=== PATIENT | female | born 1970 | race Caucasian/White ===

== ENCOUNTER 2017-03-17 11:08 | Outpatient (CLI) | payer OTHER ==
--- NOTE | 2017-03-17 13:53 | Mammography Report ---
DIGITAL DIAGNOSTIC BILATERAL MAMMOGRAM: 03/17/2017 CLINICAL INDICATION: Recent trauma with tender palpable abnormality adjacent to the right nipple. COMPARISON: 05/08/2012. TECHNIQUE: Bilateral CC, MLO, right true lateral views. A marker was placed at the site of palpable a bnormality identified by the patient. FINDINGS: The breasts demonstrate scattered fibroglandular densities bilaterally. No suspicious mass es, clustered microcalcifications, or regions of architectural distortion are identified. No mammogra phic abnormality is appreciated in the right periareolar breast, at the site indicated by the marker. Please also refer to right breast ultrasound of the same day. IMPRESSION: PROBABLE BENIGN FINDINGS, WITH A LIKELY HEMATOMA ON ULTRASOUND. RECOMMENDATION: RIGHT BREAST ULTRASOUND IN SIX MONTHS. BIRADS CATEGORY 3-PROBABLE BENIGN FINDINGS. STANDARD QUALIFYING STATEMENTS 1. This examination was reviewed with the aid of Computer-Aided Detection (CAD). 2. A negative or benign imaging report should not delay biopsy if clinically suspicious findings are present. Consider surgical consultation if warranted. More than 5% of cancers are not identified by i maging. 3. Dense breasts may obscure an underlying neoplasm. JOB #: [id number] EXT JOB #:[id number]
--- NOTE | 2017-03-18 07:02 | Ultrasound Report ---
ULTRASOUND RIGHT BREAST: 03/17/2017 CLINICAL INDICATION: Palpable periareolar lesion, recent trauma. 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 FINDINGS: Ultrasound of the periareolar right breast was performed. At the 9 o'clock position, there is a 0.8 x 0.8 x 0.6 cm hypoechoic nodule, compatible with a small h ematoma. No sonographically suspicious findings are seen. IMPRESSION: LIKELY SMALL HEMATOMA CORRELATING WITH THE PALPABLE ABNORMALITY. RECOMMENDATION: RIGHT BREAST ULTRASOUND IN SIX MONTHS. BIRADS CATEGORY 3-PROBABLE BENIGN FINDINGS. JOB #: [id number] EXT JOB #:[id number]
== END 2017-03-17 11:09 | disposition home or self-care (01) ==
LOC: DI 11:08
PROVIDERS: ATTEND Physician Assistant Medical
DX: N63 Unspecified lump in breast (principal)
CPT/HCPCS: 76642; 77066

== ENCOUNTER 2018-02-24 16:40 | Outpatient (CLI) | payer OTHER ==
--- NOTE | 2018-02-24 23:04 | XRAY Report ---
Procedure Date: 02/24/2018 Accession Number: [id number] / [id number] Procedure: XR - Tib/Fib LT CPT Code: FULL RESULT: EXAM: LEFT TIBIA/FIBULA RADIOGRAPHY EXAM DATE: 02/24/2018 05:08 PM. CLINICAL HISTORY: NEOPLASM OF LEG. Additional history: Swelling to anterior surface of left mid leg of unknown origin. Patient states no recent trauma to leg. COMPARISON: None. TECHNIQUE: 2 views. FINDINGS: Bones: No displaced fracture. Along the anterior margin of the distal third of the tibial diaphysis involving the cortex there is minimal subcortical sclerosis and mild anterior projection of the cortex. No cortical thinning/erosion. No periosteal reaction. No central nidus. Location is atypical for stress reaction/fracture. Joints: Knee and ankle joints are normally aligned. Soft Tissues: No focal soft tissue swelling, particularly no soft tissue swelling demonstrated over the abnormality of the distal anterior tibia. IMPRESSION: Abnormality of the anterior cortex of the distal third of the tibial diaphysis with nonaggressive features, though of uncertain etiology. Consider nuclear medicine bone scan versus MRI of the lower extremity without and with contrast for further evaluation. RADIA
== END 2018-02-24 16:41 | disposition home or self-care (01) ==
LOC: DI 16:40
PROVIDERS: ATTEND Internal Medicine
DX: M89.8X6 Other specified disorders of bone, lower leg (principal); D49.89 Neoplasm of unspecified behavior of other specified sites

== ENCOUNTER 2021-02-07 10:55 | Emergency (ER) | payer OTHER ==
--- NOTE | 2021-02-07 11:22 | ED Physician Documentation ---
PD HPI UPPER EXT INJURY - Stated complaint Stated Complaint: L HAND LAC - Chief complaint Chief Complaint: Laceration - History obtained from History obtained from: Patient - History of Present Illness Location: Left, Finger (dorsl ring and little) Type of injury: Laceration (cut with edge of glass, dorsal fingers DIPs, with some bleeding. 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 - Present Medications Home Medications: Ambulatory Orders Medication Instructions Recorded Confirmed Lisinopril [Zestril] 2.5 mg PO DAILY 02/07/21 02/07/21 - Allergies Allergies/Adverse Reactions: Allergies Allergy/AdvReac Type Severity Reaction Status Date / Time Sulfa (Sulfonamide Allergy Unknown Verified 02/07/21 11:14 Antibiotics) - Social History Does the pt smoke?: Yes Smoking Status: Current every day smoker Does the pt drink ETOH?: Yes Does the pt have substance abuse?: No - Immunizations Immunizations are current?: Yes PD ED PE NORMAL - Vitals Vital signs reviewed: Yes - General General: Alert and oriented X 3, Well developed/nourished - Derm Derm: Normal color, Warm and dry - Extremities Extremities: Other (left ring and little fingers with well demarcated lacs dorsal DIP joints without weakness nor numbness distally. Lacs to fatty layer; no deep structures nor FBs. ) - Neuro Neuro: No motor deficit, No sensory deficit Results - Vitals Vitals: Vital Signs - 24 hr 02/07/21 02/07/21 11:11 12:21 Temperature 37.1 C 36.7 C Heart Rate 96 85 Respiratory 18 20 Rate Blood Pressure 194/105 H 156/95 H O2 Saturation 99 99 Oxygen O2 Source Room air Procedures - Laceration (location) ring and little fingers Length in cm: 2 Wound type: Linear, Into subcut fat Neurovascular status: Sensory intact, Motor intact, Vascular intact Tendon involvement: Tendon intact Skin layer closure: Dermabond, Steri strips PD MEDICAL DECISION MAKING - ED course Complexity details: considered differential, d/w patient Departure - Departure Disposition: 01 Home, Self Care Clinical Impression: Finger laceration Qualifiers: Encounter type: initial encounter Finger: ring finger Damage to nail status: without damage Foreign body presence: without foreign body Laterality: left Qualified Code(s): S61.215A - Laceration without foreign body of left ring finger without damage to nail, initial encounter Condition: Stable Record reviewed to determine appropriate education?: Yes Instructions: ED Laceration Hand Comments: Keep the area clean and dry. Allow the glue and tapes to fall off on their own after several days or more. That should then be sealed enough to allow just regular wound care with Band-Aids. Discharge Date/Time: 02/07/21 12:29
[2021-02-07 12:22] VITALS: BP 156/95
== END 2021-02-07 12:29 | disposition home or self-care (01) ==
LOC: ED 10:55
DX: S61.215A Laceration without foreign body of left ring finger without damage to nail, initial encounter (principal); S61.217A Laceration without foreign body of left little finger without damage to nail, initial encounter; W25.XXXA Contact with sharp glass, initial encounter; Y92.009 Unspecified place in unspecified non-institutional (private) residence as the place of occurrence of the external cause; I10 Essential (primary) hypertension; F17.200 Nicotine dependence, unspecified, uncomplicated
CPT/HCPCS: 12001; 99282

== ENCOUNTER 2021-12-19 10:36 | Emergency (ER) | payer OTHER ==
[2021-12-19 10:53] VITALS: BP 178/97
--- NOTE | 2021-12-19 12:47 | ED Physician Documentation ---
History of Present Illness - Stated complaint Stated Complaint: LUMP ON R BREAST - Chief complaint Chief Complaint: General - History obtained from History obtained from: Patient - History of Present Illness Pain level max: 3 Pain level now: 2 - Additonal information Additional information: Patient is a 51-year-old female who presents to the emergency department with right breast swelling and tenderness. She stated is to the right side of the nipple. She states she has noticed a lump for about the past month, but became red and tender about 4-5 days ago. No fevers. No chills. Nothing makes it better or worse. Her last mammogram was about 6 years ago. No drainage from the nipple. No breast-feeding. 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 - Present Medications Home Medications: Ambulatory Orders Medication Instructions Recorded Confirmed Losartan Potassium [Cozaar] 100 mg PO DAILY 12/19/21 12/19/21 Metoprolol Succinate [Toprol Xl] 50 mg PO DAILY 12/19/21 12/19/21 clindamycin HCL [Cleocin HCl] 300 mg PO Q6H #40 cap 12/19/21 - Allergies Allergies/Adverse Reactions: Allergies Allergy/AdvReac Type Severity Reaction Status Date / Time shellfish derived Allergy Nausea Verified 12/19/21 10:48 Sulfa (Sulfonamide Allergy Unknown Verified 12/19/21 10:48 Antibiotics) - Social History Does the pt smoke?: Yes Smoking Status: Current every day smoker Does the pt drink ETOH?: Yes Does the pt have substance abuse?: No - Immunizations Immunizations are current?: Yes PD ED PE NORMAL - Vitals Vital signs reviewed: Yes - General General: Alert and oriented X 3, No acute distress - HEENT HEENT: Moist mucous membranes - Neck Neck: Supple, no meningeal sign - Cardiac Cardiac: RRR - Respiratory Respiratory: No respiratory distress, Clear bilaterally - Derm Derm: Warm and dry - Neuro Neuro: Alert and oriented X 3 - Psych Psych: Normal mood, Normal affect - Free text exam Free text exam: Tender to palpation over the right breast, there is about a 3 cm indurated erythematous area to the lateral aspect of the breast, adjacent to the areola. No lymphadenopathy Results - Vitals Vitals: Vital Signs - 24 hr 12/19/21 10:50 Temperature 36.7 C Heart Rate 93 Respiratory 16 Rate Blood Pressure 178/97 H O2 Saturation 99 Oxygen O2 Source Room air - Rads (name of study) Breast ultrasound Radiology: Final report received, EMP read contemporaneously, See rad report PD MEDICAL DECISION MAKING - ED course Complexity details: reviewed results, re-evaluated patient, considered differential, d/w patient, d/w family, d/w clinical sales consultant (Dr. Jiménez) ED course: 51-year-old female presents to the emergency department with swelling and redness to the right breast. Ultrasound appears consistent with an abscess as does her clinical exam. General surgery was consulted and came to perform an incision and drainage, patient refuses incision and drainage. As she refuses this, we will trial first on oral antibiotics. Patient was counseled several times that this may not cure her abscess and that her abscess could become worse, necessitating a larger procedure or resulting in sepsis. Patient was also counseled that she needs a follow-up ultrasound in 1 month as directed by radiology. Patient counseled regarding signs and symptoms for which I believe and urgent re-evaluation would be necessary. Patient with good understanding of and agreement to plan and is comfortable going home at this time This document was made in part using voice recognition software. While efforts are made to proofread this document, sound alike and grammatical errors may occur. Findings consistent with abscess. Departure - Departure Disposition: 01 Home, Self Care Clinical Impression: Breast abscess Condition: Good Instructions: ED Staph Infec Abx Tx Only Follow-Up: Mika Jiménez MD [Provider Admit Priv/Credential] - Within 1 week Elisa Hinojosa ARNP [Primary Care Provider] - Within 1 week Prescriptions: clindamycin HCL [Cleocin HCl] 300 mg PO Q6H #40 cap Comments: Take all antibiotics until gone. Return if you worsen. You have elected not to have the abscess incised and drained today. This may result in the abscess worsening and the infection could spread. Please return if you have increased pain, fever or worsening symptoms. Please follow-up with Dr. Jiménez as discussed today. Your prescriptions were sent to [facility] in [place]. You will need a repeat ultrasound in 1 month. Discharge Date/Time: 12/19/21 16:28
[2021-12-19] MEDS ORDERED: LIDOCAINE 2%-EPI 1:100000 20 ML MDV SUBQ STA (13:33)
[2021-12-19] MEDS ORDERED: CLINDAMYCIN 150 MG CAPSULE PO STA (13:45)
--- NOTE | 2021-12-19 13:45 | Ultrasound Report ---
No prior exams were available for comparison. Findings: Color flow and real-time ultrasound of the right breast 9-10 o'clock, and axilla regions w ere performed. Rivas scale images of the real-time examination were reviewed. In the right breast 9 o'clock to 10 o'clock position at the edge of the areola there is a 2.5 x 1.9 x 2.5 cm hypoechoic/anechoic area likely an abscess with associated phlegmon. Some areas have a solid appearance. A prior ultrasound in 2017 demonstrated a mass in the same location measuring 8 x 8 x 6 mm. Impression: Findings are most consistent with an abscess. Findings were discussed with . Marck montero is caring for the patient in the emergency department, and clinically the patient has findings mos t consistent with an abscess. Therefore after drainage and antibiotics, a 1 month ultrasound is amish mmended to ensure resolution. Reviewed by: Blue Akers on 12/19/2021 1:43 PM PDT Approved by: Blue Akers on 12/19/2021 1:43 PM PDT Station ID: [id number]
--- NOTE | 2021-12-19 16:18 | CONSULTATION NOTE ---
Referring Provider Consult Date: 12/19/21 History of Present Illness - History Obtained From Records Reviewed: yes History obtained from: pt Exam Limitations: none - History of Present Illness HPI Comment/Other: mild right breast inflammation for a few weeks. progressed to redness last couple days. minimal pain. 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 Meds/Allgy - Home Medications Home Medications: Ambulatory Orders Medication Instructions Recorded Confirmed Losartan Potassium [Cozaar] 100 mg PO DAILY 12/19/21 12/19/21 Metoprolol Succinate [Toprol Xl] 50 mg PO DAILY 12/19/21 12/19/21 - Allergies Allergies/Adverse Reactions: Allergies Allergy/AdvReac Type Severity Reaction Status Date / Time shellfish derived Allergy Nausea Verified 12/19/21 10:48 Sulfa (Sulfonamide Allergy Unknown Verified 12/19/21 10:48 Antibiotics) Exam - Vital Signs Vital Signs: Vital Signs x48h Temp Pulse Resp BP Pulse Ox 12/19/21 10:50 36.7 C 93 16 178/97 H 99 - Physical Exam General Appearance: positive: No acute distress, Alert Eyes Bilateral: positive: PERRL, EOMI, No scleral icterus ENT: positive: No signs of dehydration Neck: positive: No JVD, Trachea midline Respiratory: positive: No respiratory distress Abdomen: positive: No distention Skin: positive: Other (right breast just under the areola edge 10:00 small abscess with mild overlying cellulitis) Neurologic/Psychiatric: positive: Oriented x3 Conclusion/Plan - Problem List (1) Breast abscess Conclusion/Plan: I and D offered. She has minimal pain and has not been on antibiotics. plan home on oral antibiotics. follow up surgery office is recommended. she is asked to get a referral from her pmd. we discussed if it gets worse over the weekend she should come to the ED for incision and drainage.
== END 2021-12-19 16:28 | disposition home or self-care (01) ==
LOC: ED 10:36
DX: N61.1 Abscess of the breast and nipple (principal); I10 Essential (primary) hypertension; F17.200 Nicotine dependence, unspecified, uncomplicated
CPT/HCPCS: 76642; 99284; A9270

== ENCOUNTER 2022-02-12 10:29 | Outpatient (CLI) | payer OTHER ==
--- NOTE | 2022-02-13 16:14 | Ultrasound Report ---
LIMITED ULTRASOUND OF RIGHT BREAST: 02/12/2022 CLINICAL: Patient returns for short term follow-up of a probably benign mass in the right breast. Comparison is made to exam dated: 12/19/2021 ultrasound - [facility]. Color flow and real-time ultrasound of the right breast 9-10 o'clock, and retroareolar regions were p erformed. Rivas scale images of the real-time examination were reviewed. There is a 0.7 cm x 0.6 cm x 0.5 cm oval fluid collection in the right breast at 9 o'clock anterior d epth. This oval fluid collection is hypoechoic with posterior acoustic enhancement. This abnormalit y is decreased in size. (Previously 2.5 cm x 2.5 cm x 1.9 cm on 12/19/2021). Color flow imaging demons trates that there is an adjacent vascularity. IMPRESSION: PROBABLY BENIGN The 0.7 cm fluid collection in the right breast is decreased in size and most likely is an abscess an d is probably benign. A follow-up ultrasound in 6 months is recommended to demonstrate resolution. Patient is also due for mammogram. Exam findings were conveyed to the patient. This exam was interpreted at Station ID: [id number]. Electronically Signed By: Dany Molina M.D. slc/:02/12/2022 11:10:10 Ultrasound BI-RADS: 3 Probably benign BI-RADS CATEGORY: (3) - 3 Mammo and [place] [id number] 6 month follow-up LATERALITY: (B)
== END 2022-02-12 10:30 | disposition home or self-care (01) ==
LOC: DI 10:29
PROVIDERS: ATTEND Registered Nurse
DX: R92.8 Other abnormal and inconclusive findings on diagnostic imaging of breast (principal)

== ENCOUNTER 2022-10-04 07:02 | Outpatient (CLI) | payer OTHER ==
[2022-10-04 14:39] LABS: BASOPHILS % (AUTO) 0.4 %; EOSINOPHILS # (AUTO) 0.3 10^3/uL (0.0-0.7); EOSINOPHILS % (AUTO) 4.5 %; HCT - HEMATOCRIT 41.8 % (37.0-47.0); HGB - HEMOGLOBIN 13.4 g/dL (12.0-16.0); LYMPHOCYTES # (AUTO) 2.1 10^3/uL (1.5-3.5); LYMPHOCYTES % (AUTO) 31.1 %; MEAN CORPUSCULAR HEMOGLOBIN 32.4 pg (27.0-31.0); MEAN CORPUSCULAR HGB CONC 32.1 g/dL (32.0-36.0); MEAN PLATELET VOLUME 9.8 fL (7.9-10.8); MONOCYTES # (AUTO) 0.5 10^3/uL (0.0-1.0); MONOCYTES % (AUTO) 7.4 %; NEUTROPHILS # (AUTO) 3.9 10^3/uL (1.5-6.6); NEUTROPHILS % (AUTO) 56.3 %; PLT - PLATELET COUNT 289 10^3/uL (130-450); RED BLOOD COUNT 4.14 10^6/uL (4.20-5.40); RED CELL DISTRIBUTION WIDTH 13.6 % (12.0-15.0); WHITE BLOOD COUNT 6.9 x10^3/uL (4.8-10.8)
[2022-10-04 15:38] LABS: ALBUMIN 3.9 g/dL (3.2-5.5); ALBUMIN/GLOBULIN RATIO 1.3 (1.0-2.2); ALKALINE PHOSPHATASE 67 IU/L (42-121); ALT ALANINE AMINOTRANSFERASE 35 IU/L (10-60); AST ASPARTATE AMINOTRANSFERASE 82 IU/L (10-42); BILIRUBIN,TOTAL 0.7 mg/dL (0.2-1.0); BUN - BLOOD UREA NITROGEN 12 mg/dL (6-20); CALCIUM 9.1 mg/dL (8.5-10.3); CARBON DIOXIDE - CO2 25 mmol/L (21-32); CHLORIDE 105 mmol/L (101-111); CHOL/HDL RATIO 5.4 (<4.4); CHOLESTEROL 258 mg/dL; CREATININE 0.7 mg/dL (0.4-1.0); GFR - MDRD 88 (>89); GLUCOSE 158 mg/dL (70-100); HDL CHOLESTEROL 48 mg/dL; LDL CHOLESTEROL,CALCULATED 156 mg/dL; LDL/HDL RATIO 3.3 (<4.4); POTASSIUM 3.6 mmol/L (3.5-5.0); SODIUM 138 mmol/L (135-145); TRIGLYCERIDES 268 mg/dL; VLDL CHOLESTEROL 54 mg/dL
[2022-10-04 15:53] LABS: THYROID STIMULATING HORMONE 2.97 uIU/mL (0.34-5.60)
== END 2022-10-04 07:03 | disposition home or self-care (01) ==
LOC: LAB.S 07:02
PROVIDERS: ATTEND Registered Nurse
DX: I10 Essential (primary) hypertension (principal); E78.5 Hyperlipidemia, unspecified
CPT/HCPCS: 36415; 80053; 80061; 83721; 84443; 85025

== ENCOUNTER 2022-10-22 07:42 | Outpatient (CLI) | payer OTHER ==
[2022-10-22] MEDS ORDERED: GADOBUTROL 10 MMOL/10 ML VIAL ONE (07:48)
[2022-10-22 07:58] LABS: CREATININE 0.6 mg/dL (0.4-1.0)
[2022-10-22] MEDS ORDERED: GADOBUTROL 10 MMOL/10 ML VIAL IVP ONE (09:30)
--- NOTE | 2022-10-22 14:53 | MRI Report ---
PROCEDURE: ABDOMEN W/WO INDICATIONS: LIVER MASS CONTRAST: Gadavist 8.2ml TECHNIQUE: Coronal ultra fast SE, axial 2D spoiled GE in- and [id number]; axial breath-hold T2 fast SE. Dynam ic axial ultra fast GE during the administration of contrast; post-contrast coronal ultra fast GE or 2D spoiled GE with fat saturation from the hepatic dome to the iliac crests. Optional diffusion weig hted imaging and ADC may be performed. COMPARISON: None. FINDINGS: Image quality: Excellent. Lung bases: No basal pleural effusions. Heart size is normal. Solid organs: Liver and spleen are normal in size. Hepatic steatosis. Multiple (at least 9) T2 hyper intense hepatic lesions. Largest in segment IVb measures 3.8 cm with peripheral nodular discontinuous arterial hyperenhancement with centripetal filling. The other lesions demonstrate arterial enhanceme nt. Gallbladder is not distended. No gallstones. Biliary system is non dilated. Pancreas is normal in morphology. No adrenal nodules. Both kidneys demonstrate normal size and enhancement, without hy dronephrosis. Nodes and vessels: No retroperitoneal or mesenteric adenopathy by size criteria. Aorta and inferior vena cava are normal in size. Bowel and peritoneum: Unenhanced bowel loops are normal in caliber. No free fluid. Bones and soft tissues: No ventral hernias. Bone marrow is normal in overall signal. IMPRESSION: Multiple arterial hyperenhancing lesions in the liver. The largest measures 3.8 cm and has imaging fe atures most consistent with a benign hemangioma. The other lesions are likely flash filling hemangiom as. Hepatic steatosis. No biliary or pancreatic ductal dilatation. Reviewed by: Dany Molina MD on 10/22/2022 2:52 PM PDT Approved by: Dany Molina MD on 10/22/2022 2:52 PM PDT Station ID: [id number]
== END 2022-10-22 07:43 | disposition home or self-care (01) ==
LOC: LAB 07:42
PROVIDERS: ATTEND Registered Nurse
DX: K76.89 Other specified diseases of liver (principal); K76.0 Fatty (change of) liver, not elsewhere classified
CPT/HCPCS: 36415; 74183; 82565; A9585

== ENCOUNTER 2023-11-10 07:46 | Outpatient (CLI) | payer OTHER ==
[2023-11-10 14:49] LABS: BASOPHILS % (AUTO) 0.6 %; EOSINOPHILS # (AUTO) 0.4 10^3/uL (0.0-0.7); EOSINOPHILS % (AUTO) 5.5 %; HCT - HEMATOCRIT 43.2 % (37.0-47.0); HGB - HEMOGLOBIN 13.2 g/dL (12.0-16.0); LYMPHOCYTES # (AUTO) 2.2 10^3/uL (1.5-3.5); LYMPHOCYTES % (AUTO) 33.6 %; MEAN CORPUSCULAR HEMOGLOBIN 29.3 pg (27.0-31.0); MEAN CORPUSCULAR HGB CONC 30.6 g/dL (32.0-36.0); MEAN PLATELET VOLUME 10.3 fL (7.9-10.8); MONOCYTES # (AUTO) 0.7 10^3/uL (0.0-1.0); MONOCYTES % (AUTO) 10.5 %; NEUTROPHILS # (AUTO) 3.2 10^3/uL (1.5-6.6); NEUTROPHILS % (AUTO) 49.5 %; PLT - PLATELET COUNT 286 10^3/uL (130-450); RED CELL DISTRIBUTION WIDTH 14.4 % (12.0-15.0); WHITE BLOOD COUNT 6.5 x10^3/uL (4.8-10.8)
[2023-11-10 15:11] LABS: ALBUMIN 4.5 g/dL (3.2-5.5); ALBUMIN/GLOBULIN RATIO 1.8 (1.0-2.2); ALKALINE PHOSPHATASE 65 IU/L (42-121); ALT ALANINE AMINOTRANSFERASE 38 IU/L (10-60); AST ASPARTATE AMINOTRANSFERASE 36 IU/L (10-42); BILIRUBIN,TOTAL 0.6 mg/dL (0.2-1.0); BUN - BLOOD UREA NITROGEN 12 mg/dL (6-20); CARBON DIOXIDE - CO2 28 mmol/L (21-32); CHLORIDE 102 mmol/L (101-111); CHOL/HDL RATIO 6.3 (<4.4); CHOLESTEROL 314 mg/dL; CREATININE 0.6 mg/dL (0.6-1.3); GFR - MDRD 105 (>89); GLUCOSE 172 mg/dL (74-104); HDL CHOLESTEROL 50 mg/dL; LDL CHOLESTEROL,CALCULATED 214 mg/dL; LDL/HDL RATIO 4.3 (<4.4); POTASSIUM 4.4 mmol/L (3.5-4.5); SODIUM 138 mmol/L (135-145); TRIGLYCERIDES 252 mg/dL (48-352); VLDL CHOLESTEROL 50 mg/dL
== END 2023-11-10 07:47 | disposition home or self-care (01) ==
LOC: LAB.S 07:46
PROVIDERS: ATTEND Registered Nurse
DX: Z13.228 Encounter for screening for other metabolic disorders (principal); Z13.220 Encounter for screening for lipoid disorders; Z13.29 Encounter for screening for other suspected endocrine disorder; Z13.0 Encounter for screening for diseases of the blood and blood-forming organs and certain disorders involving the immune mechanism
CPT/HCPCS: 36415; 80053; 80061; 83721; 84443; 85025